=== PATIENT | male | born 1945 | race Caucasian/White ===

== ENCOUNTER 2019-02-16 09:37 | Day surgery (SDC) | payer MEDICARE, OTHER ==
[~2019-02-16 09:37] MED LIST: CHONDR SU A NA/HYALUR INTRAOC KIT (SURGICARE) ONE; EPINEPHRINE INJ/PF 1 MG/1 ML AMPULE ONE; KETOROLAC TROMETHAMINE 0.45% 4 DROP/0.4 ML DROPERETTE OD PRN; LIDOCAINE 1%/PHENYLEPHRINE 1.5% 1 ML VIAL ONE
[2019-02-16] MEDS ORDERED: MIDAZOLAM 2 MG/2 ML INJ ONE (09:45)
[2019-02-16] MEDS: TETRACAINE HCL 0.5% OPH SOLN 4 ML OD PRN ×3 (10:25→10:50)
[2019-02-16] MEDS: BESIFLOXACIN HCL 0.6% OPH SUSP 5 ML BOTTLE OD PRN ×4 (10:25→11:11)
[2019-02-16] MEDS: CYCLOPENTOLATE 0.2%/PHENYLEPHRINE 1% OPH SOLN 2 ML OD PRN ×3 (10:25→10:45)
[2019-02-16] MEDS: TROPICAMIDE 1% OPH SOLN 3 ML OD PRN ×3 (10:25→10:45)
[2019-02-16] MEDS: DORZOLAMIDE HCL 2%/TIMOLOL MALEAT 0.5% OPH SOLN 10 ML OD PRN ×2 (11:11)
--- NOTE | 2019-02-17 11:31 | [facility] OPERATIVE REPORT E ---
[facility] Operative Report NAME: RENNY CANTU AGE: 73Y DATE OF SURGERY: 02/16/2019 ROOM: PREOPERATIVE DIAGNOSIS: CATARACT, RIGHT EYE. POSTOPERATIVE DIAGNOSIS: CATARACT, RIGHT EYE. OPERATION: Cataract extraction with insertion of an IOL of the right eye. SURGEON: KATHI GARCIA M.D. ANESTHESIA: Topical. PROCEDURE: After obtaining appropriate consent, the patient's right eye was prepped and draped in sterile fashion as well as the surgeon in a sterile manner and cataract surgery was started. First a paracentesis blade was used to make a side-port incision. Viscoelastic was used to inflate the anterior chamber. Next, a 2.4 mm incision was made with a 2.4 mm blade, clear corneal temporally. A continuous capsulorrhexis was made using a cystotome and Utrata forceps. Following this hydrodissection was carried out to make the lens fully loose and mobile and it was rotated 90 degrees. Following this, a oizfmb-eks-hyeanfn technique was used to phacoemulsify the lens with a CDE of 19.52. The remaining cortex was removed with irrigation/aspiration. Provisc was instilled into the capsular bag to inflate the bag. A SN60WF, 20.5 diopter lens was placed. The remaining viscoelastic material was removed with irrigation/aspiration. Following this, the incision was found to be watertight. Besivance was instilled into the eye and a protective shield was placed over the eye. The patient returned to the postoperative recovery in stable condition. DICTATING PHYSICIAN: KATHI GARCIA M.D. [id number] PHY#: [id number] ID: [id number] JOB#: [id number] ACCT: [id number] cc:KATHI GARCIA M.D. >
--- NOTE | 2019-02-17 11:36 | [facility] DISCHARGE SUMMARY E ---
[facility] Discharge Summary NAME: RENNY CANTU AGE: 73Y ADMITTED: 02/16/2019 DISCHARGED: 02/16/2019 DIAGNOSIS: Cataract, right eye. SUMMARY: This is a 73-year-old male who underwent cataract extraction of the right eye. He underwent surgery because he was having difficulty seeing road signs. DISCHARGE INSTRUCTIONS: He should be on a regular diet, no bending at the waist, and no heavy lifting. He should use his moxifloxacin, Prolensa, and Durezol at 3 p.m. and 8 p.m. and sleep with a rigid shield. I will see him for a 1-day postoperative tomorrow. DICTATING PHYSICIAN: KATHI GARCIA M.D. [id number] PHY#: [id number] ID: [id number] JOB#: [id number] ACCT: [id number] cc:KATHI GARCIA M.D. > MTDD
== END 2019-02-16 11:50 | disposition home or self-care (01) ==
LOC: SC 09:37
PROVIDERS: ATTEND Internal Medicine
DX: H25.13 Age-related nuclear cataract, bilateral (principal); I10 Essential (primary) hypertension; I49.9 Cardiac arrhythmia, unspecified; Z79.01 Long term (current) use of anticoagulants; Z79.899 Other long term (current) drug therapy
CPT/HCPCS: 66984; J2250; J3490 ×2; A9270; J0171; J2370; 142; V2632

== ENCOUNTER 2019-05-29 07:51 | Day surgery (SDC) | payer MEDICARE, OTHER ==
[2019-05-29] MEDS ORDERED: PROPOFOL INJ 200 MG/20 ML VIAL IV ONE ×2 (07:55→11:32)
[2019-05-29] MEDS ORDERED: LACTATED RINGERS 1000 ML IV PRN (09:00)
[2019-05-29] MEDS ORDERED: LIDOCAINE 0.5% INJ-PF (5 MG/ML) 50 ML SDV SUBCUT PRN (09:00)
[2019-05-29] MEDS ORDERED: METOPROLOL TARTRATE 50 MG TABLET PO ONE (09:30)
[2019-05-29] MEDS ORDERED: DILTIAZEM HCL 240 MG CAPSULE.CR PO ONE (09:30)
[2019-05-29] MEDS ORDERED: METOPROLOL TARTRATE PF/INJ 5 MG/5 ML SDV IV ONE (10:51)
--- NOTE | 2019-05-29 12:24 | Operative Report ---
Operative Report DATE OF SURGERY: 05/29/19 Operative Report: The risks, benefits and alternatives of the procedure including the risk of bleeding, perforation requiring surgery have been explained to the patient in detail and informed consent has been obtained. The patient is placed in the left, lateral decubital position. Timeout was called. Propofol medication is administered. Rectal examination is done which did not reveal any masses, tears or fissures. An Olympus videoscope was introduced into the patient's rectum. The scope was then carefully advanced all the way to the cecum. The cecum was identified by the usual anatomical landmarks of the ileocecal valve as well as the appendiceal office. Photodocumentation is obtained. The scope was then sequentially pulled back via the various segments of the colon including the ascending colon, hepatic flexure, transverse colon, splenic flexure, descending colon finding to the rectosigmoid portions of the colon. Retroflexion maneuver is performed. PREOPERATIVE DIAGNOSIS: Colorectal cancer screening POSTOPERATIVE DIAGNOSIS: Ascending colon polyp that was removed via biopsy forceps. Internal hemorrhoids OPERATION: Colonoscopy with biopsy SURGEON: KRISTEN ARDON ANESTHESIA: LMAC TISSUE REMOVED OR ALTERED: As noted above. COMPLICATIONS: None. ESTIMATED BLOOD LOSS: None. INTRAOPERATIVE FINDINGS: As noted above. PROCEDURE: Patient tolerated the procedure well. No immediate postprocedure complications are noted. Patient is discharged in good condition. Discharge date 05/29/2019. Discharge diet: Regular. Discharge activity: Regular. 2 to 3-week follow-up to discuss findings. 3 to 5-year surveillance colonoscopy. Wait on the pathology of the polyp. Patient is instructed to call the office or proceed to the emergency room should there be any further problems or questions.
[2019-05-29 12:27] VITALS: BP 116/77
--- NOTE | 2019-05-29 16:51 | EKG REPORT ---
SEVERITY:- ABNORMAL ECG - ATRIAL FIBRILLATION, V-RATE 100-153 MULTIFORM VENTRICULAR PREMATURE COMPLEXES : Confirmed by: Darlene Rasheed MD 29-May-2019 16:50:19
== END 2019-05-29 11:35 | disposition home or self-care (01) ==
LOC: END 07:51
PROVIDERS: ATTEND Internal Medicine Gastroenterology
DX: Z12.11 Encounter for screening for malignant neoplasm of colon (principal); D12.2 Benign neoplasm of ascending colon; K64.8 Other hemorrhoids
CPT/HCPCS: 45380; 88305 ×2; 93005; 93010; 00811; A9270 ×2; J3490; J2704; 811